=== PATIENT | male | born 1975 | race Caucasian/White ===

== ENCOUNTER → 2020-01-12 | Outpatient (CLI) | payer OTHER ==
--- NOTE | 2020-01-12 15:31 | Diagnostic Imaging Report ---
PROCEDURE: MRI left joint lower extremity without contrast. TECHNIQUE: Multiplanar, multisequence non contrast-enhanced MRI of the left lower extremity was accomplished. INDICATION: Left knee pain. Swelling. Instability. COMPARISON: None. FINDINGS: No acute fracture is seen in the left knee. There is bone marrow edema at the medial patella and at the lateral aspect of the distal femur, consistent with a transient patellar dislocation. There is a moderate left knee joint effusion. The articular cartilage in the patellofemoral compartment demonstrates heterogeneity and surface irregularity with small full-thickness defects at the median ridge and medial facet of the patella. The cartilage in the medial compartment appears intact. The lateral compartment demonstrates a full-thickness cartilage defect at the lateral femoral condyle measuring 1.4 cm transverse. There is increased signal in the medial meniscus without definitive extension to the articular surface. The lateral meniscus appears intact. The anterior and posterior cruciate ligaments are intact. The medial collateral ligament demonstrates surrounding edema. The medial meniscus appears to be torn. The lateral collateral ligamentous complex is intact. The extensor mechanism is intact. The lateral retinaculum is intact. The anterolateral joint space appears to contain a cartilage joint body (image 14 series 3), measuring 14 mm wide. There is moderate superficial and deep soft tissue edema about the knee. There is a grade 1 strain of the popliteus muscle. IMPRESSION: 1. Bone contusion pattern, consistent with a transient lateral patellar dislocation. No fracture is seen. 2. Grade 1 sprain of the medial collateral ligament with tearing of the medial retinaculum. 3. Cartilage loss at the patellofemoral and lateral compartments with a full-thickness defect at the lateral femoral condyle. There appears to be a cartilaginous joint body in the anterolateral joint. 4. Moderate left knee joint effusion. 5. Grade 1 strain of the popliteus muscle. Dictated by: Dictated on workstation # [id number]
== END ==
LOC: RAD 14:00
PROVIDERS: ATTEND Family Medicine
DX: S83.412A Sprain of medial collateral ligament of left knee, initial encounter (principal); S86.812A Strain of other muscle(s) and tendon(s) at lower leg level, left leg, initial encounter; S80.02XA Contusion of left knee, initial encounter; M94.262 Chondromalacia, left knee; M25.462 Effusion, left knee; X58.XXXA Exposure to other specified factors, initial encounter
CPT/HCPCS: 73721